=== PATIENT | male | born 1955 | race African-American/Black ===

== ENCOUNTER 2022-06-05 00:46 | Day surgery (SDC) | payer MEDICARE, SELFPAY ==
[2022-05-16 14:51] VITALS: BMI 27.3
[2022-06-05 06:53] VITALS: BP 126/90; PULSE 79; RESP 19; TEMP 36.3; O2SAT 100
[2022-06-05] MEDS: LACTATED RINGERS 1,000 ML 150 ML IV CONT (06:59)
--- NOTE | 2022-06-05 08:04 | P.HP_ITS ---
History of Present Illness History of Present Illness Consent: Risks, benefits, and alternatives have been discussed and questions answered. Patient agrees to proceed with procedure. Chief complaint: occult GI bleed Narrative: Ion Lopes is a 67 year old male Presents for colonoscopy. Patient found to have Hemoccult-positive stools on routine screening exam. Patient denies any obvious blood in stools. He denies abdominal pain. Weight and appetite are normal. Family history noncontributory. Patient presents today for screening colonoscopy. Review of Systems Review of Systems: Review of systems noncontributory. [facility] Past Medical History Medical History (Updated 05/06/22 @ 09:23 by Viky Miles APRN) Positive FIT (fecal immunochemical test) Tobacco abuse Surgical History Surgical History (Updated 05/06/22 @ 09:23 by Viky Miles APRN) History of sinus surgery Social History Social History (Updated 05/06/22 @ 09:06 by Emely Vale MA) Smoking status: Current every day smoker Tobacco type: cigarettes Second hand tobacco smoke exposure: Yes Alcohol intake: current Drinks per week: 16 Substance use: current Substance use type: marijuana Last use: 05/15/22 Living arrangements: alone Gender identity (if verbalized by the patient): Male Meds Home Medications and Allergies Home Medications Medication Instructions Recorded Confirmed Type lisinopril 40 mg tablet 40 mg PO DAILY #90 tabs 04/28/22 06/05/22 Rx amlodipine 10 mg tablet 10 mg PO DAILY 05/06/22 06/05/22 History Allergies Allergy/AdvReac Type Severity Reaction Status Date / Time No Known Allergies Allergy Verified 06/05/22 06:51 Vital Signs Vital Signs - 24 hr 06/05/22 06:53 Temperature 97.3 F L Pulse Rate 79 Respiratory Rate 19 Blood Pressure 126/90 Pulse Oximetry 100 Oxygen Delivery Room Air Exam Narrative: Physical exam reveals patient to be alert. Vital signs stable. HEENT exam is unremarkable. Patient is anicteric. Lungs are clear to auscultation and percussion. Heart is without murmur or extra sounds. Abdomen bowel sounds are present soft nontender with stooling. Digital external rectal exam is normal. Assessment and Plan Assessment and plan (1) Positive FIT (fecal immunochemical test): Code(s): R19.5 - Other fecal abnormalities Status: Acute Assessment and Plan: Occult blood in stool noted to be positive. Plan for screening colonoscopy to assess more thoroughly. Further recommendations may be given after endoscopy.
--- NOTE | 2022-06-05 08:15 | P.PNAN_ITS ---
Anes - Initial Pre Proc Eval Procedure: Operation Date: 06/05/22 08:15 Proposed Procedures p Colonoscopy - Faisal Mccord MD Date/Time: 06/05/22 08:15 Surgeon: Faisal Mccord MD Pre Op Diagnosis: occult GI bleed Patient Data Age: 67 Gender: M Height: 1.85 m Weight: 92.2 kg Last Vital Signs Temp 97.3 F L 06/05/22 06:53 Pulse 79 06/05/22 06:53 Resp 19 06/05/22 06:53 BP 126/90 06/05/22 06:53 Pulse Ox 100 06/05/22 06:53 O2 Del Method Room Air 06/05/22 06:53 Allergies Allergy/AdvReac Type Severity Reaction Status Date / Time No Known Allergies Allergy Verified 06/05/22 06:51 Home Medications Medication Instructions Recorded Confirmed Type lisinopril 40 mg tablet 40 mg PO DAILY #90 tabs 04/28/22 06/05/22 Rx amlodipine 10 mg tablet 10 mg PO DAILY 05/06/22 06/05/22 History Patient hx anesthesia problems: none Family hx anesthesia problems: none Results Review: All pre-operative results and documents have been reviewed as part of the pre- operative evaluation. [facility] Past Medical History Medical History (Updated 05/06/22 @ 09:23 by Viky Miles APRN) Positive FIT (fecal immunochemical test) Tobacco abuse Surgical History Surgical History (Updated 05/06/22 @ 09:23 by Viky Miles APRN) History of sinus surgery Social History Social History (Updated 05/06/22 @ 09:06 by Emely Vale MA) Smoking status: Current every day smoker Tobacco type: cigarettes Second hand tobacco smoke exposure: Yes Alcohol intake: current Drinks per week: 16 Substance use: current Substance use type: marijuana Last use: 05/15/22 Living arrangements: alone Gender identity (if verbalized by the patient): Male Anes - Eval Final PreProcedure Day of Procedure 06/05/22 08:15 Patient weight: normal Heart: regular rate and rhythm Lungs: clear to auscultation Airway: Mallampati scale class II Neurological: alert and oriented Last oral intake: >/= 8 hours ASA classification: II Emergent: no Anesthetic plan: proceed Anesthesia type and monitoring: general GIVS and standard monitoring Results Review: All pre-operative results and documents have been reviewed as part of the pre- operative evaluation. Informed Consent: The patient's anesthetic plan and its attendant risks and benefits were discussed with the patient/family/POA. Questions were solicited and answers provided to the satisfaction of the patient/family/POA.
[2022-06-05 09:12] VITALS: BP 135/85; PULSE 78; RESP 14; O2SAT 98
[2022-06-05 09:22] VITALS: BP 145/82; PULSE 84; RESP 19; O2SAT 100
[2022-06-05 09:32] VITALS: BP 151/100; PULSE 74; RESP 17; O2SAT 100
== END 2022-06-05 09:41 | disposition home or self-care (01) ==
PROVIDERS: PCP Family Medicine Adolescent Medicine; Visit Provider Internal Medicine Gastroenterology
PROC: 0DJD8ZZ Inspection of Lower Intestinal Tract, Via Natural or Artificial Opening Endoscopic (ICD-10-PCS; CPT 45378; principal; 2022-06-05 08:15)
DX: Z12.11 Encounter for screening for malignant neoplasm of colon (principal); D12.2 Benign neoplasm of ascending colon; D12.0 Benign neoplasm of cecum; D12.5 Benign neoplasm of sigmoid colon; K57.30 Diverticulosis of large intestine without perforation or abscess without bleeding; R19.5 Other fecal abnormalities; K64.8 Other hemorrhoids; F17.210 Nicotine dependence, cigarettes, uncomplicated
CPT/HCPCS: 45385; 88305; J2704; J7120

== ENCOUNTER 2022-10-28 09:20 | Outpatient (CLI) | payer MEDICARE, SELFPAY ==
--- NOTE | 2022-10-28 09:30 | ECG_ITS ---
Measurements Intervals [place] Rate: 75 P: 92 VA: 196 QRS: -16 QRSD: 90 T: 29 QT: 382 QTc: 429 Interpretive Statements SINUS RHYTHM WITH SINUS ARRHYTHMIA NORMAL ECG NO PREVIOUS ECG AVAILABLE FOR COMPARISON Electronically Signed On 10-28-2022 14:13:53 [employer] by Emile Pollock M.D.
== END 2022-10-28 09:21 | disposition home or self-care (01) ==
LOC: ANHSURGERY 09:24
PROVIDERS: PCP Family Medicine Adolescent Medicine; Visit Provider Surgery
DX: Z01.810 Encounter for preprocedural cardiovascular examination (principal); K40.90 Unilateral inguinal hernia, without obstruction or gangrene, not specified as recurrent; I10 Essential (primary) hypertension; I49.8 Other specified cardiac arrhythmias
CPT/HCPCS: 36415; 93005

== ENCOUNTER 2022-10-31 01:32 | Day surgery (SDC) | payer MEDICARE, SELFPAY ==
--- NOTE | 2022-10-24 10:15 | PC.NURSE ---
Report to the Outpatient Waiting Room, entrance under the green pavilion located off [address], at time ___1100____ on date __10/31/22 . Planned Procedure Time: __1300 . Time changes happen often and if your time is changed the preop area will call you the afternoon before. - You and your visitor will be asked to self-screen and do not enter if you have any COVID symptoms. - Only one visitor is requested with a max of two and NO children visitors are allowed at this time. - The patient visitor may be requested to leave or wait in car when not with patient due to distancing restrictions. - A mask is optional within the hospital at this time. Patients may have clear liquids (water, carbonated beverages, clear teas, apple juice) until 3 hours prior to surgery with a maximum of 20 ounces. - No food from midnight until time of surgery - Infants may have breast milk until 4 hours before surgery, infant formula 6 hours prior to surgery. - Children will be allowed to drink immediately following surgery. If applicable, please bring a bottle or sippy cup to assist with drinking. Juice, water, soda, and popsicles are readily available. For infants on formula, please bring formula the day of surgery. Pacifiers are allowed. Take the following medications with a SIP of water the morning of surgery: ___AMLODIPINE DO NOT STOP ANY OF YOUR OTHER PRESCRIPTION MEDICATIONS PRIOR TO SURGERY ?EXCEPT THE FOLLOWING Medications to discontinue per physician NONE Date to take last dose HIBICLENS SHOWER MORNING OF SURGERY Please no make-up, nail spanish, hairspray, perfume, deodorant, or body powder the day of surgery. No jewelry (including any body piercings) or valuables the day of surgery, leave them at home. Please take a shower or bath the night before, or the morning of, surgery with an antibacterial soap. Wear comfortable, loose fitting clothing. Children are encouraged to wear pajamas. - Jewelry must be removed prior to entering the operating room. Rings and piercings that are not removed may be cut off. - The hospital will not accept responsibility for valuables. - Please leave all valuables, including medications, at home the day of surgery. If you are going home after surgery, a licensed ems driver must drive you home. - NO public transportation without another adult if you receive anesthesia. - We recommend that an adult stay with you for 24 hours following discharge. - We also recommend that you do not drive, make important decision, drink alcoholic beverages, or take any drugs that were not prescribed by your health care provider for at least 24 hours after your discharge time. Follow any additional instructions given to you from your surgeon. If you or anyone in your household have experienced Covid symptoms in the past week, please notify your surgeon or the nurse liaison at the phone number below for possible testing. Telephone instructions given to PATIENT and asked if any additional questions and then verbalized understanding. Patient advised to call surgeon office or pre surgery nurse liaison [phone] if any additional questions.
[2022-10-24 10:27] VITALS: BMI 25.7
[2022-10-31] VITALS (11 sets, daily range): BP systolic 116–155; BP diastolic 66–85; PULSE 71–100; RESP 12–20; TEMP 36.2–36.5; O2SAT 98–100
[2022-10-31] MEDS: ACETAMINOPHEN 500 MG TABLET 1000 MG PO (11:25)
[2022-10-31] MEDS: LACTATED RINGERS 1,000 ML 30 ML IV CONT ×3 (11:37→17:37)
[2022-10-31] MEDS: KETOROLAC 15 MG/ML VIAL (*BKC) IV PUSH (11:40)
--- NOTE | 2022-10-31 12:10 | P.PNAN_ITS ---
Anes - Initial Pre Proc Eval Procedure: Operation Date: 10/31/22 13:00 Proposed Procedures p Robotic Assisted Laparoscopic Right Inguinal Hernia Repair - Derrick Salamanca MD Date/Time: 10/31/22 12:10 Surgeon: Derrick Salamanca MD Pre Op Diagnosis: right Inguinal Hernia Patient Data Age: 67 Gender: M Height: 1.85 m Weight: 88.8 kg Last Vital Signs Temp 36.2 C L 10/31/22 11:02 Pulse 83 10/31/22 11:02 Resp 16 10/31/22 11:02 BP 128/77 10/31/22 11:02 Pulse Ox 100 10/31/22 11:02 O2 Del Method Room Air 10/31/22 11:02 Allergies Allergy/AdvReac Type Severity Reaction Status Date / Time No Known Allergies Allergy Verified 10/31/22 11:17 Home Medications Medication Instructions Recorded Confirmed Type amlodipine 10 mg tablet See Rx Instructions .Route 06/24/22 10/31/22 Rx .COMPLEX #90 tabs lisinopril 40 mg tablet 40 mg PO DAILY #90 tabs 10/24/22 10/31/22 Rx loratadine 10 mg tablet (Allergy 10 mg PO DAILY 10/24/22 10/31/22 History Relief (loratadine)) multivitamin 1 cap PO DAILY 10/31/22 10/31/22 History Patient hx anesthesia problems: none Family hx anesthesia problems: none Results Review: All pre-operative results and documents have been reviewed as part of the pre- operative evaluation. [facility] Past Medical History Medical History (Updated 10/23/22 @ 11:14 by Elmira Gross) Hypertension Positive FIT (fecal immunochemical test) Tobacco abuse Surgical History Surgical History History of sinus surgery Family History Family History Father Malignant neoplasm of prostate Mother Hypertension Ovarian cancer Sibling Hypertension Diabetes mellitus Grandparent Diabetes mellitus Malignant neoplasm of prostate Social History Social History (Updated 10/31/22 @ 12:15 by Cesar Jefferson DO) Years smoked: 30 Smoking status: Current every day smoker Tobacco type: cigarettes Second hand tobacco smoke exposure: Yes Alcohol intake: current Drinks per week: 16 Alcohol use details: 2 drinks every other day Substance use: current Substance use type: marijuana Other substance usage details: every other day. Last use: 10/30/22 Living arrangements: alone Occupation/Education: retired Gender identity (if verbalized by the patient): Male Spiritual care concerns: No Anes - Eval Final PreProcedure Day of Procedure 10/31/22 12:10 Patient weight: overweight Heart: regular rate and rhythm Lungs: clear to auscultation Airway: Mallampati scale class II Neurological: alert and oriented Last oral intake: >/= 8 hours ASA classification: III Emergent: no Anesthetic plan: proceed Anesthesia type and monitoring: general ETT and standard monitoring Results Review: All pre-operative results and documents have been reviewed as part of the pre- operative evaluation. Informed Consent: The patient's anesthetic plan and its attendant risks and benefits were discussed with the patient/family/POA. Questions were solicited and answers provided to the satisfaction of the patient/family/POA.
--- NOTE | 2022-10-31 13:11 | WPDHPUPDATE1 ---
History and Physical Update Update Date/Time: 10/31/22 13:11 History and Physical has been reviewed, including an updated exam of the patient. There are NO changes in the patient's condition. Risks, benefits, and alternatives have been discussed and questions answered. Patient agrees to proceed with procedure.
[2022-10-31] MEDS: ceFAZolin 2 GM/D5W 50 ML 2 GM/50 ML BAG IVPB (13:43)
[2022-10-31] MEDS: BUPIVACAINE/EPINEPHRINE 0.5% 10 ML VIAL 20 ML INFILTRATE (14:28)
--- NOTE | 2022-10-31 15:52 | W.PM.PROC2 ---
Procedure Note - Detailed Date of Procedure 10/31/22 Pre-op Diagnosis right Inguinal Hernia Post-op Diagnosis Same Procedure Performed Robotic laparoscopic right inguinal hernia repair with 3D max mesh Surgeon Derrick Salamanca MD Electro Optical Engineer Faisal DAMON/Quique DAMON Anesthesia General and Local Indications Patient has had an enlarging bulge in the right groin. It is occasionally painful. He was seen in the office and found to have a large right inguinal hernia. It is reducible. He is taken to surgery now for robotic laparoscopic repair Findings Showed a large indirect hernia Description of Procedure Patient was taken to surgery and induced into general anesthesia. The abdomen is prepped and draped. An applied Medical optical trocar was used to gain access to the abdominal cavity being placed in the left subcostal position. After insufflation a camera positioned. We placed an 8 mm robotic port just above the umbilicus. Another 8 mm robotic port was placed in the right upper abdomen. The applied Medical trocar was then exchanged for an 8 mm robotic port. We then brought in the robot and docked the camera. The camera was targeted. We then docked the remaining ports. Instruments were positioned. The surgeon went to the console. A peritoneal incision was made anteriorly over the groin anatomy. A peritoneal flap was then developed. This was dissected below the pectinate line laterally. The dissection was continued just lateral to the median umbilical ligament and eventually the pubis and Eliu's ligament were exposed. The hernia sac was then dissected. Was a large sac and was dissected carefully out of the internal ring. Eventually the sac was dissected out completely and gently freed from the cord structures. Cautery was used for hemostasis. Eventually the sac was dissected completely free. We then continued mobilizing the posterior aspect of the flap so that the mesh would be able to sit well below the pubic symphysis and below the pectinate line. 17 x 12 3DMax mesh was then introduced into the abdominal cavity. It was positioned over the inguinal anatomy. 3-0 Vicryl suture were used and the mesh was secured to the anterior abdominal wall as well as to Eliu's ligament. 0 V lock suture was then introduced. The peritoneum was closed with running 0 V lock. There was a hole in the posterior part of the peritoneal flap. This was closed with [id number] mattress sutures of 3-0 Vicryl. The mesh was completely covered now with peritoneum. All looked good. The robot was undocked. We evacuated CO2 and removed the trocar sleeves. Skin wounds were closed with subcuticular 4-0 Monocryl skin suture. The wounds were dressed with Exofin surgical adhesive. Patient was awakened and taken to recovery in good condition. Sponge and needle counts were correct x2. Implants 17 x 12 cm 3D max mesh Estimated Blood Loss -5 Drains No Packing No Pathology None sent Complications No immediate complications Condition Stable Disposition PACU [facility] Billing Surgery - Charge Forward: Surgery Billing (Robotic laparoscopic repair right inguinal hernia with 3DMax mesh)
[2022-10-31] MEDS: fentaNYL CITRATE INJ (*CRX) 100 MCG/2 ML VIAL 25 MCG IV PUSH (16:11)
[2022-10-31] MEDS: ONDANSETRON INJ 4 MG/2 ML VIAL IV PUSH (16:47)
[2022-10-31] MEDS: diphenhydrAMINE HCl INJ 50 MG/ML VIAL 6.25 MG IV PUSH (18:00)
== END 2022-10-31 19:03 | disposition home or self-care (01) ==
PROVIDERS: PCP Family Medicine Adolescent Medicine; Visit Provider Surgery
PROC: 8E0Y4CZ Robotic Assisted Procedure of Lower Extremity, Percutaneous Endoscopic Approach (ICD-10-PCS; CPT 49650; principal; 2022-10-31 13:00)
DX: K40.90 Unilateral inguinal hernia, without obstruction or gangrene, not specified as recurrent (principal); I10 Essential (primary) hypertension; F17.210 Nicotine dependence, cigarettes, uncomplicated; F12.90 Cannabis use, unspecified, uncomplicated
CPT/HCPCS: 49650; S2900; 36415; 86850; 86900; 86901; 93005; A9270; C1781; J0690; J1170; J1200; J1885; J2405; J3010; J7120

== ENCOUNTER 2024-03-31 13:12 | Emergency (ER) | payer MEDICARE, SELFPAY ==
[2024-03-31 13:28] VITALS: BP 112/68; PULSE 85; RESP 16; TEMP 36.8; O2SAT 100
--- NOTE | 2024-03-31 13:37 | ED.GENADULT ---
HPI - General Adult General Chief complaint: Nausea/Vomiting/Diarrhea Stated complaint: Diarrhea/Vomiting Time Seen by Provider: 03/31/24 13:28 Source: patient and RN notes reviewed Mode of arrival: ambulatory Limitations: no limitations History of Present Illness HPI narrative: Patient presents today complaining of copious postnasal drainage x5 days, which he states has lead to nausea and 1 episode of vomiting and 1 episode of loose stool this morning. Denies any additional symptoms to include fever, cough, sore throat, abdominal pain, congestion. He takes daily loratadine at home. No additional [id number] medication for symptoms prior to arrival. Related Data Home Medications Medication Instructions Recorded Confirmed loratadine 10 mg tablet (Allergy 10 mg PO DAILY 10/24/22 03/31/24 Relief (loratadine)) multivitamin 1 cap PO DAILY 10/31/22 03/31/24 Allergies Allergy/AdvReac Type Severity Reaction Status Date / Time No Known Allergies Allergy Verified 03/31/24 13:25 Review of Systems Review of Systems: CONSTITUTIONAL: Denies body aches, fever, chills, or sweats. EYES: Denies visual changes, redness, or discharge. ENT: Denies rhinorrhea, congestion, sore throat, or otalgia.+ postnasal drip CARDIOVASCULAR: Denies chest pain, palpitations, or edema. RESPIRATORY: Denies cough or dyspnea. GASTROINTESTINAL: Denies abdominal pain. + nausea, vomiting, GENITOURINARY: Denies dysuria or hematuria. SKIN: Denies rash, itching, or wounds. MUSCULOSKELETAL: Denies back pain, joint pain, or myalgia. NEUROLOGIC: Denies headache, numbness, tingling, or weakness. PSYCH: Denies depression or anxiety. [facility] Past Medical History Medical History Positive FIT (fecal immunochemical test) Right inguinal hernia Tobacco abuse Surgical History Surgical History History of right inguinal hernia repair 10/31/22 History of sinus surgery (10/2022) Family History Family History Father Malignant neoplasm of prostate Mother Hypertension Ovarian cancer Sibling Hypertension Diabetes mellitus Grandparent Diabetes mellitus Malignant neoplasm of prostate Social History Social History Years smoked: 30 Smoking status: Current every day smoker Tobacco type: cigarettes Second hand tobacco smoke exposure: Yes Alcohol intake: current Drinks per week: 16 Alcohol use details: 2 drinks every other day Substance use: current Substance use type: marijuana Other substance usage details: every other day. Last use: 10/30/22 Living arrangements: alone Occupation/Education: retired Gender identity (if verbalized by the patient): Male Spiritual care concerns: No Comments At time of signature, I have reviewed and agree with nursing past medical, surgical, social and family history unless otherwise noted. Please see nursing chart for further information. There is no relevant family history pertinent to the presenting complaint Exam Narrative: GENERAL: Well-appearing, well-nourished, and in no acute distress. HEAD: Normocephalic, atraumatic. EYES: EOMI. No redness or drainage. Conjunctivae normal. ENT: Mucous membranes pink and moist. Nares clear. No rhinorrhea. TMs normal bilaterally. Throat normal. Uvula midline. Patient has 2 large lumps to the soft palate. Normal color. Nontender. NECK: Normal AROM. Supple. No lymphadenopathy. CHEST: No respiratory distress. Clear to auscultation. HEART: Regular rate and rhythm. No murmur appreciated. ABDOMEN: Soft, nontender, nondistended, normal active bowel sounds. EXTREMITIES: Normal range of motion. No edema. SKIN: Warm, dry, no rash. Capillary refill normal. Normal skin turgor. NEURO: No focal deficits. Pia
== END 2024-03-31 13:43 | disposition home or self-care (01) ==
PROVIDERS: Emergency Provider Nurse Practitioner; PCP Family Medicine Adolescent Medicine
DX: R09.81 Nasal congestion (principal); F17.210 Nicotine dependence, cigarettes, uncomplicated; F12.90 Cannabis use, unspecified, uncomplicated
CPT/HCPCS: 99213; G0463

== ENCOUNTER 2024-10-18 00:40 | Day surgery (SDC) | payer MEDICARE, MEDICAID, SELFPAY ==
[2024-10-04 08:50] VITALS: BMI 27.0
--- OUTSIDE RECORDS SUMMARY | 2024-10-18 00:44 | XMS_ITS | Continuity of Care Document ---
Author Organization [facility] Address [address] [place] [address] Phone Care Team Providers Care Anode Rebuilder Name Role Phone Rodríguez OD, Faisal Unavailable Unavailable Advance Directives Directive Yes / No Effective Date File Name No Information Encounters Encounter Description Practice Location Reason(s) For Visit Diagnoses Date Provider Providers Copied on Encounter [facility], [address], [place], [place], [id number], [place] tel:[phone] [facility] No Information 4-200 6 Rodríguez OD Faisal. [address] , [address], [place], [address], [place]. tel:[phone] Family History Family Member Type Diagnosis Age At Onset No Information Payers Payer name Insurance type Covered constitution party ID Authoriza tion(s) No Information Social History Type Description Quantity Date Captured Comments Sex Male Smoking Status No Information Chief Complaint And Reason For Visit No Information Reason For Referral Reason For Referral No Information History Of Present Illness Encounter Date Complaint History Of Prese nt Illness No Information Functional Status Date Functional Assessmen t No Information Instructions Date Instruction Additional Infor mation No Information Assessments Type Assessment Date No Information Patient Care Teams Name Effective Dates (start - stop) Status Members No Information
[2024-10-18 09:36] VITALS: BP 113/65; PULSE 73; RESP 18; TEMP 36; O2SAT 100
[2024-10-18] MEDS: LACTATED RINGERS 1,000 ML 150 ML IV CONT (09:47)
--- NOTE | 2024-10-18 10:03 | WPDANESEPPF ---
Anes - Initial Pre Proc Eval Procedure: Operation Date: 10/18/24 10:30 Proposed Procedures p Colonoscopy - Krish Mcneil MD Date/Time: 10/18/24 10:03 Surgeon: Krish Mcneil MD Pre Op Diagnosis: hx of colon polyps Patient Data Age: 69 Gender: M Height: 1.85 m Weight: 89.4 kg Last Vital Signs Temp 36.0 C L 10/18/24 09:36 Pulse 73 10/18/24 09:36 Resp 18 10/18/24 09:36 BP 113/65 10/18/24 09:36 Pulse Ox 100 10/18/24 09:36 O2 Del Method Room Air 10/18/24 09:36 Allergies Allergy/AdvReac Type Severity Reaction Status Date / Time No Known Allergies Allergy Verified 10/18/24 09:35 Home Medications ?Medication ?Instructions ?Recorded ?Confirmed ?Type loratadine 10 mg tablet (Allergy 10 mg PO DAILY 10/24/22 10/18/24 History Relief (loratadine)) multivitamin 1 cap PO DAILY 10/31/22 10/18/24 History amlodipine 10 mg tablet See Rx Instructions .Route 05/27/24 10/18/24 Rx .COMPLEX #90 tabs lisinopril 40 mg tablet See Rx Instructions .Route 09/07/24 10/18/24 Rx .COMPLEX #90 tabs Patient hx anesthesia problems: none Family hx anesthesia problems: none Results Review: All pre-operative results and documents have been reviewed as part of the pre-operative evaluation. [facility] Past Medical History Medical History Right inguinal hernia Tobacco abuse Positive FIT (fecal immunochemical test) Surgical History Surgical History History of right inguinal hernia repair 10/31/22 History of sinus surgery (10/2022) Family History Family History Father Malignant neoplasm of prostate Mother Hypertension Ovarian cancer Sibling Hypertension Diabetes mellitus Grandparent Diabetes mellitus Malignant neoplasm of prostate Social History Social History Smoking packs per day: 3 Smoking cigarettes per day: 60.0 Years smoked: 30 Smoking pack-years: 90.00 Smoking status: Current some day smoker Tobacco type: cigarettes Second hand tobacco smoke exposure: Yes Alcohol intake: current Drinks per week: 4 Alcohol use details: 2 drinks every other day Substance use: never Substance use type: marijuana Other substance usage details: every other day. Last use: 10/30/22 Living arrangements: alone Occupation/Education: retired Gender identity (if verbalized by the patient): Male Spiritual care concerns: No Anes - Eval Final PreProcedure Day of Procedure 10/18/24 10:03 Patient weight: normal Heart: regular rate and rhythm Lungs: clear to auscultation Airway: Mallampati scale class II Neurological: alert and oriented Last oral intake: >/= 8 hours ASA classification: II Emergent: no Anesthetic plan: proceed Anesthesia type and monitoring: general GIVS and standard monitoring Results Review: All pre-operative results and documents have been reviewed as part of the pre-operative evaluation. Informed Consent: The patient's anesthetic plan and its attendant risks and benefits were discussed with the patient/family/POA. Questions were solicited and answers provided to the satisfaction of the patient/family/POA.
--- NOTE | 2024-10-18 10:33 | PM.IMHP ---
H&P: HPI History of Present Illness Date/Time: 10/18/24 10:33 Chief Complaint: History of colon polyps Narrative: The patient has a history of colonic polyps, the last colonoscopy was 2 years ago, finding some adenomas measuring more than 2 cm. There is no family history of colorectal cancer Review of Systems Review of Systems: All systems reviewed & are unremarkable except as noted in HPI and below PMFSH Past Medical History Medical History Right inguinal hernia Tobacco abuse Positive FIT (fecal immunochemical test) Surgical History Surgical History History of right inguinal hernia repair 10/31/22 History of sinus surgery (10/2022) Family History Family History Father Malignant neoplasm of prostate Mother Hypertension Ovarian cancer Sibling Hypertension Diabetes mellitus Grandparent Diabetes mellitus Malignant neoplasm of prostate Social History Social History Smoking packs per day: 3 Smoking cigarettes per day: 60.0 Years smoked: 30 Smoking pack-years: 90.00 Smoking status: Current some day smoker Tobacco type: cigarettes Second hand tobacco smoke exposure: Yes Alcohol intake: current Drinks per week: 4 Alcohol use details: 2 drinks every other day Substance use: never Substance use type: marijuana Other substance usage details: every other day. Last use: 10/30/22 Living arrangements: alone Occupation/Education: retired Gender identity (if verbalized by the patient): Male Spiritual care concerns: No Meds Home Medications and Allergies Home Medications ?Medication ?Instructions ?Recorded ?Confirmed ?Type loratadine 10 mg tablet (Allergy 10 mg PO DAILY 10/24/22 10/18/24 History Relief (loratadine)) multivitamin 1 cap PO DAILY 10/31/22 10/18/24 History amlodipine 10 mg tablet See Rx Instructions .Route 05/27/24 10/18/24 Rx .COMPLEX #90 tabs lisinopril 40 mg tablet See Rx Instructions .Route 09/07/24 10/18/24 Rx .COMPLEX #90 tabs Allergies Allergy/AdvReac Type Severity Reaction Status Date / Time No Known Allergies Allergy Verified 10/18/24 09:35 Vital Signs Vital Signs - 24 hr 10/18/24 09:36 Temperature 96.8 F L Pulse Rate 73 Respiratory Rate 18 Blood Pressure 113/65 Pulse Oximetry 100 Oxygen Delivery Room Air Exam Const: General: cooperative and healthy appearing Resp: Effort & Inspection: normal respiratory effort and able to speak in complete sentences Auscultation: clear to auscultation bilaterally Cardio: Rate: regular rate Rhythm: regular rhythm GI: Inspection: normal to inspection GI Palp: No No hepatosplenomegaly present Auscultation: normal bowel sounds Rectal Exam: deferred Skin: General skin exam: normal color Psych: Appearance: grossly normal Mental Status: mental status grossly normal Assessment and Plan Assessment and plan (1) History of colonic polyps: Code(s): Z86.0100 - Personal history of colon polyps, unspecified Status: Acute Assessment and Plan: The patient is deemed a good candidate for the procedure. Consent signed. Will proceed.
[2024-10-18 11:02] VITALS: BP 122/68; PULSE 73; RESP 20; O2SAT 100
[2024-10-18 11:12] VITALS: BP 111/72; PULSE 70; RESP 15; O2SAT 100
[2024-10-18 11:22] VITALS: BP 116/74; PULSE 66; RESP 14; O2SAT 100
== END 2024-10-18 11:32 | disposition home or self-care (01) ==
PROVIDERS: PCP Family Medicine Adolescent Medicine; Referring Provider Family Medicine Adolescent Medicine; Visit Provider Internal Medicine Gastroenterology
PROC: 0DJD8ZZ Inspection of Lower Intestinal Tract, Via Natural or Artificial Opening Endoscopic (ICD-10-PCS; CPT 45378; principal; 2024-10-18 10:30)
DX: Z09 Encounter for follow-up examination after completed treatment for conditions other than malignant neoplasm (principal); D12.3 Benign neoplasm of transverse colon; K64.8 Other hemorrhoids; K57.30 Diverticulosis of large intestine without perforation or abscess without bleeding; F17.210 Nicotine dependence, cigarettes, uncomplicated; F12.90 Cannabis use, unspecified, uncomplicated; Z98.890 Other specified postprocedural states; Z80.42 Family history of malignant neoplasm of prostate; Z80.41 Family history of malignant neoplasm of ovary
CPT/HCPCS: 45385; 88305; J2003; J2704; J7120